=== PATIENT | female | born 1955 | race American Indian/Alaskan Native ===

== ENCOUNTER 2016-08-25 09:12 | Emergency (ER) | payer MEDICARE ==
[2016-08-25 09:20] VITALS: BP 157/108
--- NOTE | 2016-08-25 10:13 | XRay Report ---
LEFT FOOT, 2 VIEWS History: Injury. Findings: There is borderline osteopenia. No evidence for acute fracture or malalignment in the left foot. No erosive joint pathology. Distal tibial and fibular fractures are partially imaged. Impression: Unremarkable left foot films.
[2016-08-25] MEDS ORDERED: MORPHINE IV ONE ×2 (10:32→10:56)
[2016-08-25] MEDS ORDERED: ZOFRAN IV ONE (10:32)
--- NOTE | 2016-08-25 10:37 | XRay Report ---
LEFT ANKLE RADIOGRAPHS INDICATION: Injury from fall to left ankle. COMPARISON: None similar. FINDINGS: AP and lateral left ankle radiographs demonstrate intact mortise, malleoli and talar dome contour. Diffuse ankle soft tissue swelling though noted, medial more than lateral. Distal tibial and fibular shaft fractures approximately 5 cm above the ankle joint also noted, not significantly displaced, though slightly angulated. Fibular fracture may also be incomplete with only lateral cortical disruption. Bony demineralization. CONCLUSION: Left distal tibial and fibular shaft acute fractures and ankle soft tissue swelling with few other findings, as above. Thank you for the opportunity to participate in this patient's care.
--- NOTE | 2016-08-25 11:22 | Emergency Department Report ---
ED Lower Extremity HPI - General Chief Complaint: Extremity Injury, Lower Stated Complaint: TORN LIGAMENT,POSSIBLE FRACTURE Time Seen by Provider: 08/25/16 10:47 Source: patient Mode of arrival: Wheelchair Limitations: Physical Limitation - History of Present Illness MD Complaint: ankle injury -: Sudden Injury: Ankle: Left, Foot: Left Type of Injury: blunt, hyperextension Place: home Severity: moderate Severity scale (0 -10): 7 Improves With: nothing Worsens With: weight bearing, movement, palpation Associated Symptoms: snap/pop sensation, swelling, unable to bear weight. denies: numbness, tingling, ambulatory Treatments Prior to Arrival: cold therapy, bandage - Related Data Home Medications Medication Instructions Recorded Confirmed Last Taken HYDROcodone/APAP 10-325 1 tab Q4-6H 05/06/15 05/06/15 1 Day Ago Phenytoin Sodium Extended 100 mg PO DAILY 05/06/15 05/06/15 1 Day Ago Previous Rx's Medication Instructions Recorded Last Taken Type Carvedilol [Coreg] 25 mg PO BID #60 tablet 05/13/15 Unknown Rx Omeprazole [PriLOSEC] 40 mg PO QDAY #30 05/13/15 1 Day Ago Rx Triamter/Hctz 37.5-25 mg 1 tab PO QDAY #30 05/13/15 1 Day Ago Rx [Maxzide-25] amLODIPine [Norvasc] 10 mg PO QDAY #30 tablet 05/13/15 Unknown Rx Diclofenac Sodium 75 mg PO BID #20 tablet. 08/25/16 Unknown Rx HYDROcodone/APAP 10-325 [[place] 1 each PO BID PRN #12 tablet 08/25/16 Unknown Rx 10/325] Allergies Allergy/AdvReac Type Severity Reaction Status Date / Time NAVA Inhibitors Allergy Severe Angioedema Verified 05/07/15 09:14 ED Review of Systems ROS: Stated complaint: TORN LIGAMENT,POSSIBLE FRACTURE Other details as noted in HPI Comment: All other systems reviewed and negative ED Past Medical Hx - Past Medical History Hx Hypertension: Yes Hx Heart Attack/AMI: No Hx Congestive Heart Failure: Yes Hx Diabetes: No Hx Deep Vein Thrombosis: No Hx Pulmonary Embolism: No Hx GERD: Yes Hx Arthritis: Yes (Knees) Hx Seizures: Yes (Pituitary Tumor) Hx Asthma: No Hx COPD: No Hx Tuberculosis: No Hx Dementia: No Additional medical history: SCIATICA. PITUITARY TUMOR - Surgical History Hx Coronary Stent: No Hx Open Heart Surgery: No Hx Pacemaker: No Hx Internal Defibrillator: No Hx Cholecystectomy: No Hx Appendectomy: No Additional Surgical History: FIBROID REMOVED. HYSTERECTOMY - Social History Smoking Status: Never Smoker Substance Use Type: None - Medications Home Medications: Home Medications Medication Instructions Recorded Confirmed Last Taken Type HYDROcodone/APAP 10-325 1 tab Q4-6H 05/06/15 05/06/15 1 Day Ago History Phenytoin Sodium Extended 100 mg PO DAILY 05/06/15 05/06/15 1 Day Ago History Carvedilol [Coreg] 25 mg PO BID #60 tablet 05/13/15 Unknown Rx Omeprazole [PriLOSEC] 40 mg PO QDAY #30 05/13/15 05/06/15 1 Day Ago Rx Triamter/Hctz 37.5-25 mg 1 tab PO QDAY #30 05/13/15 05/06/15 1 Day Ago Rx [Maxzide-25] amLODIPine [Norvasc] 10 mg PO QDAY #30 tablet 05/13/15 Unknown Rx Diclofenac Sodium 75 mg PO BID #20 tablet. 08/25/16 Unknown Rx HYDROcodone/APAP 10-325 [[place] 1 each PO BID PRN #12 tablet 08/25/16 Unknown Rx 10/325] ED Physical Exam - General Limitations: Physical Limitation General appearance: alert, in no apparent distress - Head Head exam: Present: atraumatic, normocephalic - Eye Eye exam: Present: normal appearance - ENT ENT exam: Present: mucous membranes moist - Neck Neck exam: Present: normal inspection - Respiratory Respiratory exam: Present: normal lung sounds bilaterally. Absent: respiratory distress - Cardiovascular Cardiovascular Exam: Present: regular rate, normal rhythm. Absent: systolic murmur, diastolic murmur, rubs, gallop - GI/Abdominal GI/Abdominal exam: Present: soft, normal bowel sounds - Extremities Exam Extremities exam: Present: tenderness (to aplaption in distal lowerl left leg / above the ankle joint), joint swelling, other (neurovascular intact) - Back Exam Back exam: Present: normal inspection - Neurological Exam Neurological exam: Present: alert, oriented X3 - Psychiatric Psychiatric exam: Present: normal affect, normal mood - Skin Skin exam: Present: warm, dry, intact, normal color. Absent: rash ED Course Vital Signs 08/25/16 08/25/16 09:16 10:57 Temperature 98.7 F Pulse Rate 87 Respiratory 20 22 Rate Blood Pressure 157/108 O2 Sat by Pulse 100 Oximetry ED Lower Extremity MDM - Radiology Data Radiology results: report reviewed, image reviewed - Medical Decision Making will need a splint for her tib-fib close fracture. Has appointment with ortho later this week, will provide pain control and crutches, she has been in pain control at this point and neurovascular intact Critical care attestation.: If time is entered above; I have spent that time in minutes in the direct care of this critically ill patient, excluding procedure time. ED Disposition Clinical Impression: Ankle fracture Disposition: DC- TO HOME OR SELFCARE Is pt being admited?: No Does the pt Need Aspirin: No Condition: Good Instructions: Ankle Fracture (ED) Prescriptions: Diclofenac Sodium 75 mg PO BID #20 tablet. HYDROcodone/APAP 10-325 [[place] 10/325] 1 each PO BID PRN #12 tablet PRN Reason: Pain Referrals: PRIMARY CARE, [Primary Care Provider] - 3-5 Days Time of Disposition: 11:22
== END 2016-08-25 12:02 | disposition home or self-care (01) ==
LOC: ED 09:12
DX: S82.892A Other fracture of left lower leg, initial encounter for closed fracture (principal); I10 Essential (primary) hypertension; M19.90 Unspecified osteoarthritis, unspecified site; R56.9 Unspecified convulsions; Z88.8 Allergy status to other drugs, medicaments and biological substances; X58.XXXA Exposure to other specified factors, initial encounter; Y93.89 Activity, other specified; Y99.8 Other external cause status; Y92.89 Other specified places as the place of occurrence of the external cause
CPT/HCPCS: 29515; 73600; 73620; 96374; 96375; 99283; J2270; J2405

== ENCOUNTER 2019-03-28 17:10 | Observation (INO) | payer MEDICARE ==
[2019-03-28 19:13] LABS: Basophils % (Auto) 0.4 % (0.0-1.8); Eosinophils % (Auto) 0.4 % (0.0-4.3); Lymphocytes # (Auto) 2.4 K/mm3 (1.2-5.4); Lymphocytes % (Auto) 21.9 % (13.4-35.0); Mean Corpuscular HGB Conc 32 % (30-34); Mean Corpuscular Volume 93 fl (79-97); Monocytes # (Auto) 0.6 K/mm3 (0.0-0.8); Monocytes % (Auto) 5.2 % (0.0-7.3); Platelet Count 259 K/mm3 (140-440); Red Blood Count 1.94 M/mm3 (3.65-5.03); Red Cell Distribution Width 14.2 % (13.2-15.2)
--- NOTE | 2019-03-28 19:19 | Emergency Department Report ---
- General Chief complaint: Weakness Stated complaint: GENERAL WEAKNESS Time Seen by Provider: 03/28/19 18:08 Source: patient, EMS Mode of arrival: Stretcher Limitations: No Limitations - History of Present Illness Initial comments: 63-year-old -Citizen Of [place] female presents emergency department complaining of having some episodes of weakness which began about 5 days ago. She states that the bouts of weakness was associated with a fever sensation and various episodes of vomiting which occurred 2 times since Thursday. Thinking back she thinks that she had taken her blood pressure medication too many times at area as it was just adjusted by her primary care doctor is to take her medication she became hypersomnolent and fatigued but reported no chest pain or shortness of breath no blurred vision or syncope. She did report having a few episodes of feeling dizzy but present that it resolved she primarily came to [facility] department today due to her kids encouraging her just to get checked out to make sure things okay states she is ambulatory and and 30 cc not been able to drink a lot this past couple days due to her sleepy. MD Complaint: generalized weakness -: Gradual, days(s) (5) Location: generalized Severity: mild, moderate Consistency: other (Improving nearly resolved) Improves with: none Worsens with: none Associated Symptoms: denies other symptoms, fever/chills. denies: chest pain, dark stools, diaphoresis, headaches, loss of appetite, nausea/vomiting, shortness of breath - Related Data Home Medications Medication Instructions Recorded Confirmed Last Taken amLODIPine 10 mg PO PRN PRN 01/25/18 01/25/18 Unknown Previous Rx's Medication Instructions Recorded Last Taken Type Omeprazole [PriLOSEC] 40 mg PO QDAY #30 05/13/15 1 Day Ago Rx ~05/05/15 carvediloL [Coreg] 25 mg PO BID #60 tablet 05/13/15 Unknown Rx HYDROcodone/APAP 10-325 [[place] 1 each PO BID PRN #12 tablet 08/25/16 Unknown Rx 10-325 mg TAB] Allergies Allergy/AdvReac Type Severity Reaction Status Date / Time NAVA Inhibitors Allergy Severe Angioedema Verified 05/07/15 09:14 ED Review of Systems ROS: Stated complaint: GENERAL WEAKNESS Other details as noted in HPI Comment: All other systems reviewed and negative ED Past Medical Hx - Past Medical History Hx Hypertension: Yes Hx Heart Attack/AMI: No Hx Congestive Heart Failure: No Hx Diabetes: No Hx Deep Vein Thrombosis: No Hx Pulmonary Embolism: No Hx GERD: Yes Hx Arthritis: Yes (Knees) Hx Seizures: Yes (Pituitary Tumor) Hx Asthma: No Hx COPD: No Hx Tuberculosis: No Hx Dementia: No Additional medical history: SCIATICA. PITUITARY TUMOR - Surgical History Hx Coronary Stent: No Hx Open Heart Surgery: No Hx Pacemaker: No Hx Internal Defibrillator: No Hx Cholecystectomy: No Hx Appendectomy: No Additional Surgical History: FIBROID REMOVED. HYSTERECTOMY - Social History Smoking Status: Never Smoker - Medications Home Medications: Home Medications Medication Instructions Recorded Confirmed Last Taken Type Omeprazole [PriLOSEC] 40 mg PO QDAY #30 05/13/15 01/25/18 1 Day Ago Rx ~05/05/15 carvediloL [Coreg] 25 mg PO BID #60 tablet 05/13/15 01/25/18 Unknown Rx HYDROcodone/APAP 10-325 [[place] 1 each PO BID PRN #12 tablet 08/25/16 01/25/18 Unknown Rx 10-325 mg TAB] amLODIPine 10 mg PO PRN PRN 01/25/18 01/25/18 Unknown History ED Physical Exam - General Limitations: No Limitations General appearance: alert, in no apparent distress - Head Head exam: Present: atraumatic, normocephalic - Eye Eye exam: Present: normal appearance, PERRL, EOMI. Absent: scleral icterus, conjunctival injection - ENT ENT exam: Present: normal exam, normal orophraynx, mucous membranes moist - Neck Neck exam: Present: normal inspection - Respiratory Respiratory exam: Present: normal lung sounds bilaterally. Absent: respiratory distress, wheezes, rales, chest wall tenderness, accessory muscle use - Cardiovascular Cardiovascular Exam: Present: regular rate, normal rhythm. Absent: systolic murmur, diastolic murmur, rubs, gallop - GI/Abdominal GI/Abdominal exam: Present: soft, normal bowel sounds. Absent: distended, tenderness, guarding, hyperactive bowel sounds, hypoactive bowel sounds - Rectal Rectal exam: Present: normal inspection, heme (+) stool - Extremities Exam Extremities exam: Present: normal inspection, full ROM, normal capillary refill - Back Exam Back exam: Present: normal inspection, full ROM. Absent: CVA tenderness (R), CVA tenderness (L) - Neurological Exam Neurological exam: Present: alert, oriented X3, CN II-XII intact - Psychiatric Psychiatric exam: Present: normal affect, normal mood. Absent: depressed, agitated, anxious, flat affect, manic, homicidal ideation, suicidal ideation - Skin Skin exam: Present: warm, dry, intact, normal color. Absent: rash, cyanosis, diaphoretic - Level of Consciousness 1a. Level of Consciousness: alert/keenly responsive - LOC Questions 1b. LOC Questions: answers both correctly - LOC Command 1c. LOC Commands: performs tasks correctly - Best Gaze 2. Best Gaze: normal - Visual 3. Visual: no visual loss - Facial Palsy 4. Facial Palsy: normal symmetrical movement - Motor Arm 5a. Motor Arm Left: no drift 5b. Motor Arm Right: no drift - Motor Leg 6a. Motor Leg Left: no drift 6b. Motor Leg Right: no movement - Limb Ataxia 7. Limb Ataxia: absent - Sensory 8. Sensory: normal - Best Language 9. Best Language: no aphasia - Dysarthria 10. Dysarthria: normal - Extinction and Inattention 11. Extinction/Inattention: no abnormality - Scoring Total Score: 4 Stroke Severity: Minor Stroke ED Medical Decision Making - Lab Data Result diagrams: 03/28/19 Unknown - Medical Decision Making 63-year-old -Citizen Of [place] female came to my department with painless weakness which is been off and on for about the last 5 days started secondary to a hypertensive medication adjustment was found to have a hemoglobin of 5.8 with tachycardia. On examination she had a positive stool guaiac with no gastrointestinal pain. She reports no no no fever, chills, sweats or chest pain at this present time reports having to have a DuoNeb transfusion about 2 years ago. Case was discussed with the attending Dr. Fatima who agrees with the plan to admit which was accepted by the hospitalist Dr. Avila Critical care attestation.: If time is entered above; I have spent that time in minutes in the direct care of this critically ill patient, excluding procedure time. ED Disposition Clinical Impression: Anemia, GI bleed Disposition: DC-09 OP ADMIT IP TO THIS HOSP Is pt being admited?: Yes Does the pt Need Aspirin: No Condition: Stable
[2019-03-28 19:20] LABS: Hemoglobin 5.6 gm/dl (10.1-14.3)
[2019-03-28] MEDS ORDERED: SODIUM CHLORIDE 0.9% 500 ML 500 ML IV ONE (19:24)
[2019-03-28 19:39] LABS: Alanine Aminotransferase 10 units/L (7-56); Albumin 4.1 g/dL (3.9-5); BUN/Creatinine Ratio 38; Blood Urea Nitrogen 96 mg/dL (7-17); Hemolysis Index 15
--- NOTE | 2019-03-28 19:47 | XRay Report ---
CHEST 1 VIEW 03/28/2019 7:08 PM INDICATION / CLINICAL INFORMATION: Weakness. COMPARISON: Images from study dated 05/11/15 are not available at this time. FINDINGS: SUPPORT DEVICES: None. HEART / MEDIASTINUM: No significant abnormality. LUNGS / PLEURA: No significant pulmonary or pleural abnormality. No pneumothorax. ADDITIONAL FINDINGS: No significant additional findings. IMPRESSION: 1. No acute findings. Signer Name: Navid Onofre MD Signed: 03/28/2019 7:42 PM Workstation Name: [id number]
[2019-03-28 19:54] LABS: Chol/HDL Ratio 4.18 %
[2019-03-28 20:08] LABS: Mucus,Urine FEW /HPF
[2019-03-28 20:18] LABS: Bilirubin,Urine Negative (Negative); Color,Urine Straw (Yellow)
[2019-03-28 20:19] LABS: Blood,Urine Negative (Negative); Protein,Urine <15 mg/dL mg/dL (Negative); Urobilinogen,Urine < 2.0 mg/dL (<2.0)
[2019-03-28 20:44] LABS: INR 1.2 (0.87-1.13)
[2019-03-28 20:45] LABS: Partial Thromboplastin Time 25.5 Sec. (24.2-36.6)
[2019-03-28] MEDS ORDERED: ACETAMINOPHEN 325 MG TAB ONE (21:06)
[2019-03-28] MEDS ORDERED: ONDANSETRON 4 MG/2 ML INJ ONE (21:08)
--- NOTE | 2019-03-28 21:29 | History and Physical Report ---
History of Present Illness Date of examination: 03/28/19 Date of admission: 03/28/19 Chief complaint: " I have been throwing up" History of present illness: Patient is a 63-year-old female with a past medical history of hypertension, arthritis, and seizures who presents to ER with complaints of vomiting coffee-ground emesis, generalized weakness x 5 days. Patient reports worsening symptoms over the last 2 days when she has been unable to move from her bed to the bathroom without assistance from her son. Patient also reports increased thirst with chills with her bouts of emesis. Admits to NSAID use at home with hx of gastric ulcer in 2013. Denies abd pain, diarrhea, or constipation. Past History Past Medical History: hypertension, seizures Past Surgical History: hysterectomy Social history: lives with family Family history: hypertension Medications and Allergies Allergies Allergy/AdvReac Type Severity Reaction Status Date / Time NAVA Inhibitors Allergy Severe Angioedema Verified 05/07/15 09:14 Home Medications Medication Instructions Recorded Confirmed Last Taken Type Omeprazole [PriLOSEC] 40 mg PO QDAY #30 05/13/15 01/25/18 1 Day Ago Rx ~05/05/15 carvediloL [Coreg] 25 mg PO BID #60 tablet 05/13/15 01/25/18 Unknown Rx HYDROcodone/APAP 10-325 [[place] 1 each PO BID PRN #12 tablet 08/25/16 01/25/18 Unknown Rx 10-325 mg TAB] amLODIPine 10 mg PO PRN PRN 01/25/18 01/25/18 Unknown History Review of Systems All systems: negative Constitutional: sweats, fatigue, weakness Gastrointestinal: nausea, vomiting, coffee ground emesis Exam - Physical Exam Narrative exam: - Physical Exam Narrative exam: General appearance: Present: Mild distress noted - EENT Eyes: Present: PERRL ENT: hearing intact, clear oral mucosa - Neck Neck: Present: supple, normal ROM - Respiratory Respiratory effort: normal Respiratory: bilateral: Clear to auscultation - Cardiovascular Heart rate:121 Heart Sounds: Present: S1 & S2. Absent: rub, click - Extremities Extremities: pulses symmetrical, No edema Peripheral Pulses: within normal limits - Abdominal General gastrointestinal: Present: , non-distended, normal bowel sounds genitourinary: Present: normal - Integumentary Integumentary: Present: clear, warm, dry - Musculoskeletal Musculoskeletal: gait normal, strength equal bilaterally - Psychiatric Psychiatric: appropriate mood/affect, intact judgment & insight - Neurologic Neurologic: CNII-XII intact, moves all extremities - Constitutional Vitals: Temp Pulse Resp BP Pulse Ox 98.2 F 115 H 18 104/60 98 03/28/19 17:10 03/28/19 17:10 03/28/19 19:32 03/28/19 17:10 03/28/19 19:32 Results - Labs CBC & Chem 7: 03/28/19 Unknown 03/28/19 Unknown Labs: Laboratory Last Values WBC 11.1 K/mm3 (4.5-11.0) H 03/28/19 Unknown RBC 1.94 M/mm3 (3.65-5.03) L 03/28/19 Unknown Hgb 5.6 gm/dl (10.1-14.3) L* 03/28/19 Unknown Hct 18.0 % (30.3-42.9) L* 03/28/19 Unknown MCV 93 fl (79-97) 03/28/19 Unknown MCH 29 pg (28-32) 03/28/19 Unknown MCHC 32 % (30-34) 03/28/19 Unknown RDW 14.2 % (13.2-15.2) 03/28/19 Unknown Plt Count 259 K/mm3 (140-440) 03/28/19 Unknown Lymph % (Auto) 21.9 % (13.4-35.0) 03/28/[address] [facility] % (Auto) 5.2 % (0.0-7.3) 03/28/19 Unknown Eos % (Auto) 0.4 % (0.0-4.3) 03/28/19 Unknown Baso % (Auto) 0.4 % (0.0-1.8) 03/28/19 Unknown Lymph # 2.4 K/mm3 (1.2-5.4) 03/28/[address] [facility] # 0.6 K/mm3 (0.0-0.8) 03/28/19 Unknown Eos # 0.0 K/mm3 (0.0-0.4) 03/28/19 Unknown Baso # 0.0 K/mm3 (0.0-0.1) 03/28/19 Unknown Seg Neutrophils % 72.1 % (40.0-70.0) H 03/28/19 Unknown Seg Neutrophils # 8.0 K/mm3 (1.8-7.7) H 03/28/19 Unknown PT 15.4 Sec. (12.2-14.9) H 03/28/19 20:00 INR 1.20 (0.87-1.13) H 03/28/19 20:00 APTT 25.5 Sec. (24.2-36.6) 03/28/19 20:00 Sodium 147 mmol/L (137-145) H 03/28/19 Unknown Potassium 3.7 mmol/L (3.6-5.0) 03/28/19 Unknown Chloride 108.8 mmol/L (98-107) H 03/28/19 Unknown Carbon Dioxide 18 mmol/L (22-30) L 03/28/19 Unknown Anion Gap 24 mmol/L 03/28/19 Unknown BUN 96 mg/dL (7-17) H 03/28/19 Unknown Creatinine 2.5 mg/dL (0.7-1.2) H 03/28/19 Unknown Estimated GFR 23 ml/min 03/28/19 Unknown BUN/Creatinine Ratio 38 % 03/28/19 Unknown Glucose 158 mg/dL (65-100) H 03/28/19 Unknown Calcium 9.0 mg/dL (8.4-10.2) 03/28/19 Unknown Total Bilirubin < 0.20 mg/dL (0.1-1.2) 03/28/19 Unknown AST 17 units/L (5-40) 03/28/19 Unknown ALT 10 units/L (7-56) 03/28/19 Unknown Alkaline Phosphatase 36 units/L (35-129) 03/28/19 Unknown Troponin T 0.038 ng/mL (0.00-0.029) H 03/28/19 Unknown Total Protein 6.9 g/dL (6.3-8.2) 03/28/19 Unknown Albumin 4.1 g/dL (3.9-5) 03/28/19 Unknown Albumin/Globulin Ratio 1.5 % 03/28/19 Unknown Triglycerides 164 mg/dL (2-149) H 03/28/19 Unknown Cholesterol 155 mg/dL (50-199) 03/28/19 Unknown LDL Cholesterol Direct 102 mg/dL (50-130) 03/28/19 Unknown HDL Cholesterol 37 mg/dL (40-59) L 03/28/19 Unknown Cholesterol/HDL Ratio 4.18 % 03/28/19 Unknown Urine Color Straw (Yellow) 03/28/19 Unknown Urine Turbidity Clear (Clear) 03/28/19 Unknown Urine pH 5.0 (5.0-7.0) 03/28/19 Unknown Ur Specific [place] 1.010 (1.003-1.030) 03/28/19 Unknown Urine Protein <15 mg/dl mg/dL (Negative) 03/28/19 Unknown Urine Glucose (UA) Negative mg/dL (Negative) 03/28/19 Unknown Urine Ketones Negative mg/dL (Negative) 03/28/19 Unknown Urine Blood Negative (Negative) 03/28/19 Unknown Urine Nitrite Negative (Negative) 03/28/19 Unknown Ur Reducing Substances Not Reportable 03/28/19 Unknown Urine Bilirubin Negative (Negative) 03/28/19 Unknown Urine Ictotest Not Reportable 03/28/19 Unknown Urine Urobilinogen < 2.0 mg/dL (<2.0) 03/28/19 Unknown Ur Leukocyte Esterase Negative (Negative) 03/28/19 Unknown Urine WBC (Auto) 1.0 /HPF (0.0-6.0) 03/28/19 Unknown Urine RBC (Auto) 1.0 /HPF (0.0-6.0) 03/28/19 Unknown Urine Mucus Few /HPF 03/28/19 Unknown Blood Type O POSITIVE 03/28/19 20:05 Antibody Screen Negative 03/28/19 20:05 Crossmatch See Detail 03/28/19 20:05 Assessment and Plan Assessment and plan: GI bleed -positive stool guaiac -C/o multiple episodes of coffee-ground emesis -IV Protonix -GI consulted Hypertension -Home meds once reconciled -Monitor BP q shift Anemia -Hb 5.6g/dl -secondary to GI bleed -Transfused 2 units in the ER -h/o ulcer DVT prophylaxis -SCDs bilateral - No pharmacological agent given anemia/GI bleed Advance Directives: No VTE prophylaxis?: Mechanical Reason for no VTE Prophylaxis: Bleeding Plan of care discussed with patient/family: Yes
[2019-03-28] MEDS ORDERED: ONDANSETRON 4 MG/2 ML INJ IV PRN (21:31)
[2019-03-28] MEDS ORDERED: ACETAMINOPHEN 325 MG TAB PO PRN (21:31)
[2019-03-28] MEDS ORDERED: SODIUM CHLORIDE 0.9% 500 ML 500 ML ONE (21:36)
[2019-03-28] MEDS ORDERED: PANTOPRAZOLE 40 MG INJ IV SCH (22:00)
[2019-03-28] MEDS ORDERED: ACETAMINOPHEN 325 MG TAB PO ONE (22:22)
[2019-03-28] MEDS ORDERED: ONDANSETRON 4 MG/2 ML INJ IV ONE (22:22)
[2019-03-28] MEDS ORDERED: PANTOPRAZOLE 80 MG in SODIUM CHLORIDE 0.9% 100 ML IV SCH (23:00)
[2019-03-29] MEDS ORDERED: SODIUM CHLORIDE 0.9% 500 ML 500 ML IV ONE (00:15)
[2019-03-29 05:47] LABS: Basophils # (Auto) 0.1 K/mm3 (0.0-0.1); Basophils % (Auto) 0.5 % (0.0-1.8); Eosinophils # (Auto) 0.1 K/mm3 (0.0-0.4); Eosinophils % (Auto) 1.2 % (0.0-4.3); Hematocrit 23.2 % (30.3-42.9); Hemoglobin 7.7 gm/dl (10.1-14.3); Lymphocytes # (Auto) 3.2 K/mm3 (1.2-5.4); Lymphocytes % (Auto) 27.7 % (13.4-35.0); Mean Corpuscular HGB Conc 33 % (30-34); Mean Corpuscular Volume 91 fl (79-97); Monocytes # (Auto) 0.8 K/mm3 (0.0-0.8); Monocytes % (Auto) 7.1 % (0.0-7.3); Platelet Count 179 K/mm3 (140-440); Red Blood Count 2.56 M/mm3 (3.65-5.03); Red Cell Distribution Width 15.1 % (13.2-15.2)
--- NOTE | 2019-03-29 08:45 | Progress Note ---
Assessment and Plan Assessment and plan: Patient is a 63-year-old female with a past medical history of hypertension, arthritis, and seizures who presents to ER with complaints of vomiting coffee-ground emesis, generalized weakness x 5 days. Patient reports worsening symptoms over the last 2 days when she has been unable to move from her bed to the bathroom without assistance from her son. Patient also reports increased thirst with chills with her bouts of emesis. Admits to NSAID use at home with hx of gastric ulcer in 2013. Denies abd pain, diarrhea, or constipation. Hospitalist Physical - Constitutional Vitals: Temp Pulse Resp BP Pulse Ox 99.3 F 18 L 18 110/61 100 03/29/19 08:00 03/29/19 08:00 03/29/19 02:50 03/29/19 08:00 03/29/19 07:24 Results - Labs CBC & Chem 7: 03/29/19 04:57 03/29/19 04:57 Labs: Laboratory Last Values WBC 11.7 K/mm3 (4.5-11.0) H 03/29/19 04:57 RBC 2.56 M/mm3 (3.65-5.03) L 03/29/19 04:57 Hgb 7.7 gm/dl (10.1-14.3) L 03/29/19 04:57 Hct 23.2 % (30.3-42.9) L 03/29/19 04:57 MCV 91 fl (79-97) 03/29/19 04:57 MCH 30 pg (28-32) 03/29/19 04:57 MCHC 33 % (30-34) 03/29/19 04:57 RDW 15.1 % (13.2-15.2) 03/29/19 04:57 Plt Count 179 K/mm3 (140-440) 03/29/19 04:57 Lymph % (Auto) 27.7 % (13.4-35.0) 03/29/19 04:57 [place] % (Auto) 7.1 % (0.0-7.3) 03/29/19 04:57 Eos % (Auto) 1.2 % (0.0-4.3) 03/29/19 04:57 Baso % (Auto) 0.5 % (0.0-1.8) 03/29/19 04:57 Lymph # 3.2 K/mm3 (1.2-5.4) 03/29/19 04:57 [place] # 0.8 K/mm3 (0.0-0.8) 03/29/19 04:57 Eos # 0.1 K/mm3 (0.0-0.4) 03/29/19 04:57 Baso # 0.1 K/mm3 (0.0-0.1) 03/29/19 04:57 Seg Neutrophils % 63.5 % (40.0-70.0) 03/29/19 04:57 Seg Neutrophils # 7.5 K/mm3 (1.8-7.7) 03/29/19 04:57 PT 15.4 Sec. (12.2-14.9) H 03/28/19 20:00 INR 1.20 (0.87-1.13) H 03/28/19 20:00 APTT 25.5 Sec. (24.2-36.6) 03/28/19 20:00 Sodium 143 mmol/L (137-145) 03/29/19 04:57 Potassium 3.3 mmol/L (3.6-5.0) L 03/29/19 04:57 Chloride 107.9 mmol/L (98-107) H 03/29/19 04:57 Carbon Dioxide 17 mmol/L (22-30) L 03/29/19 04:57 Anion Gap 21 mmol/L 03/29/19 04:57 BUN 89 mg/dL (7-17) H 03/29/19 04:57 Creatinine 2.1 mg/dL (0.7-1.2) H 03/29/19 04:57 Estimated GFR 29 ml/min 03/29/19 04:57 BUN/Creatinine Ratio 42 % 03/29/19 04:57 Glucose 146 mg/dL (65-100) H 03/29/19 04:57 Calcium 8.0 mg/dL (8.4-10.2) L 03/29/19 04:57 Total Bilirubin < 0.20 mg/dL (0.1-1.2) 03/28/19 Unknown AST 17 units/L (5-40) 03/28/19 Unknown ALT 10 units/L (7-56) 03/28/19 Unknown Alkaline Phosphatase 36 units/L (35-129) 03/28/19 Unknown Troponin T 0.038 ng/mL (0.00-0.029) H 03/28/19 Unknown Total Protein 6.9 g/dL (6.3-8.2) 03/28/19 Unknown Albumin 4.1 g/dL (3.9-5) 03/28/19 Unknown Albumin/Globulin Ratio 1.5 % 03/28/19 Unknown Triglycerides 164 mg/dL (2-149) H 03/28/19 Unknown Cholesterol 155 mg/dL (50-199) 03/28/19 Unknown LDL Cholesterol Direct 102 mg/dL (50-130) 03/28/19 Unknown HDL Cholesterol 37 mg/dL (40-59) L 03/28/19 Unknown Cholesterol/HDL Ratio 4.18 % 03/28/19 Unknown Urine Color Straw (Yellow) 03/28/19 Unknown Urine Turbidity Clear (Clear) 03/28/19 Unknown Urine pH 5.0 (5.0-7.0) 03/28/19 Unknown Ur Specific [place] 1.010 (1.003-1.030) 03/28/19 Unknown Urine Protein <15 mg/dl mg/dL (Negative) 03/28/19 Unknown Urine Glucose (UA) Negative mg/dL (Negative) 03/28/19 Unknown Urine Ketones Negative mg/dL (Negative) 03/28/19 Unknown Urine Blood Negative (Negative) 03/28/19 Unknown Urine Nitrite Negative (Negative) 03/28/19 Unknown Ur Reducing Substances Not Reportable 03/28/19 Unknown Urine Bilirubin Negative (Negative) 03/28/19 Unknown Urine Ictotest Not Reportable 03/28/19 Unknown Urine Urobilinogen < 2.0 mg/dL (<2.0) 03/28/19 Unknown Ur Leukocyte Esterase Negative (Negative) 03/28/19 Unknown Urine WBC (Auto) 1.0 /HPF (0.0-6.0) 03/28/19 Unknown Urine RBC (Auto) 1.0 /HPF (0.0-6.0) 03/28/19 Unknown Urine Mucus Few /HPF 03/28/19 Unknown Blood Type O POSITIVE 03/28/19 20:05 Antibody Screen Negative 03/28/19 20:05 Crossmatch See Detail 03/28/19 20:05 Active Medications - Current Medications Current Medications: Generic Name Dose Route Start Last Admin Trade Name Freq PRN Reason Stop Dose Admin Acetaminophen 650 mg 03/28/19 21:31 Tylenol PO Q4H PRN Pain MILD(1-3)/Fever >100.5/CHRISTIANSON Pantoprazole Sodium 80 mg/ 100 mls @ 10 mls/hr 03/28/19 23:00 03/29/19 05:34 Sodium Chloride IV 8 mg/hr DIRECT KHADIJAH 10 mls/hr Administration 8 MG/HR Ondansetron HCl 4 mg 03/28/19 21:31 Zofran IV Q6H PRN Nausea And Vomiting Sodium Chloride 10 ml 03/28/19 22:00 03/29/19 00:12 Sodium Chloride Flush Syringe 10 Ml IV 10 ml BID KHADIJAH Administration Sodium Chloride 10 ml 03/28/19 21:31 Sodium Chloride Flush Syringe 10 Ml IV PRN PRN LINE FLUSH
[2019-03-29] MEDS ORDERED: SODIUM CHLORIDE 0.9% 1000 ML 1,000 ML IV SCH ×2 (09:30→13:30)
[2019-03-29] MEDS ORDERED: SODIUM BICARB 8.4% 50 MEQ/50 ML SYRINGE IV ONE (10:00)
--- NOTE | 2019-03-29 11:57 | Gastroenterology Consultation ---
History of Present Illness - Reason for Consult Consult date: 03/29/19 GI bleed Requesting physician: AMADOU AMARO - History of Present Illness Patient is a 63 y/o female with PMH of HTN, arthritis, and seizures who presented to ED with c/o generalized weakness and vomiting coffee-ground emesis. Upon admission, she was found to be servely anemic with H/H 5.6/18.0. GI has been consulted for GI bleeding. This morning patient was resting in bed w/o acute distress. She reports vomiting black emesis yesterday but has had no further signs of bleeding this am. No hematemesis, melena, or hematochezia. Denies fever, CP, SOB, wt loss, abd pain, diarrhea, or constipation. Admits to heavy NSAID use with Goody's powder. Patient is previously known to our service. She has a hx of chronic anemia and PUD. Last EGD was in 2013 which revealed multiple gastric ulcers and last colonoscopy was in 2009 with normal results. Past History Past Medical History: other (see HPI) Past Surgical History: hysterectomy Social history: lives with family Family history: hypertension Medications and Allergies Allergies Allergy/AdvReac Type Severity Reaction Status Date / Time NAVA Inhibitors Allergy Severe Angioedema Verified 05/07/15 09:14 Home Medications Medication Instructions Recorded Confirmed Last Taken Type Omeprazole [PriLOSEC] 40 mg PO QDAY #30 05/13/15 03/29/19 1 Day Ago Rx ~05/05/15 carvediloL [Coreg] 25 mg PO BID #60 tablet 05/13/15 03/29/19 03/27/19 Rx HYDROcodone/APAP 10-325 [Everetts 1 each PO BID PRN #12 tablet 08/25/16 03/29/19 03/26/19 Rx 10-325 mg TAB] amLODIPine 10 mg PO PRN PRN 01/25/18 03/29/19 Unknown History levETIRAcetam [Keppra XR TAB] 750 mg PO BID 03/29/19 03/29/19 Unknown History Active Meds: Active Medications Acetaminophen (Tylenol) 650 mg PO Q4H PRN PRN Reason: Pain MILD(1-3)/Fever >100.5/CHRISTIANSON Pantoprazole Sodium 80 mg/ (Sodium Chloride) 100 mls @ 10 mls/hr IV DIRECT KHADIJAH Last Admin: 03/29/19 05:34 Dose: 8 mg/hr, 10 mls/hr Documented by: Sodium Chloride (Nacl 0.9% 1000 Ml) 1,000 mls @ 75 mls/hr IV DIRECT [facility] Last Admin: 03/29/19 10:01 Dose: 75 mls/hr Documented by: Ondansetron HCl (Zofran) 4 mg IV Q6H PRN PRN Reason: Nausea And Vomiting Sodium Chloride (Sodium Chloride Flush Syringe 10 Ml) 10 ml IV BID [facility] Last Admin: 03/29/19 10:01 Dose: 10 ml Documented by: Sodium Chloride (Sodium Chloride Flush Syringe 10 Ml) 10 ml IV PRN PRN PRN Reason: LINE FLUSH medications reviewed/updated as required Review of Systems - Review of Systems All systems: negative Constitutional: weakness Gastrointestinal: coffee ground emesis Exam - Constitutional Vital Signs: Temp Pulse Resp BP Pulse Ox 99.3 F 75 18 110/61 100 03/29/19 08:00 03/29/19 07:18 03/29/19 08:00 03/29/19 08:00 03/29/19 07:24 General appearance: no acute distress - EENT Eyes: PERRL, EOM intact ENT: hearing intact - Respiratory Respiratory effort: normal - Cardiovascular Rhythm: regular - Gastrointestinal General gastrointestinal: Present: soft, non-tender, non-distended, normal bowel sounds - Integumentary Integumentary: Present: warm, dry - Neurologic Neurological: alert and oriented x3 - Labs CBC & Chem 7: 03/29/19 04:57 03/29/19 04:57 Lab Results: Laboratory Results - last 24 hr 03/28/19 03/28/19 03/28/19 20:00 20:00 20:05 WBC RBC Hgb Hct MCV MCH MCHC RDW Plt Count Lymph % (Auto) [place] % (Auto) Eos % (Auto) Baso % (Auto) Lymph # [place] # Eos # Baso # Seg Neutrophils % Seg Neutrophils # PT 15.4 H INR 1.20 H APTT 25.5 Sodium Potassium Chloride Carbon Dioxide Anion Gap BUN Creatinine Estimated GFR BUN/Creatinine Ratio Glucose Calcium Total Bilirubin AST ALT Alkaline Phosphatase Troponin T 0.039 H Total Protein Albumin Albumin/Globulin Ratio Triglycerides Cholesterol LDL Cholesterol Direct HDL Cholesterol Cholesterol/HDL Ratio Urine Color Urine Turbidity Urine pH Ur Specific [place] Urine Protein Urine Glucose (UA) Urine Ketones Urine Blood Urine Nitrite Ur Reducing Substances Urine Bilirubin Urine Ictotest Urine Urobilinogen Ur Leukocyte Esterase Urine WBC (Auto) Urine RBC (Auto) Urine Mucus Blood Type O POSITIVE Antibody Screen Negative Crossmatch See Detail 03/28/19 03/28/19 03/28/19 Unknown Unknown Unknown WBC 11.1 H RBC 1.94 L Hgb 5.6 L* Hct 18.0 L* MCV 93 MCH 29 MCHC 32 RDW 14.2 Plt Count 259 Lymph % (Auto) 21.9 [place] % (Auto) 5.2 Eos % (Auto) 0.4 Baso % (Auto) 0.4 Lymph # 2.4 [place] # 0.6 Eos # 0.0 Baso # 0.0 Seg Neutrophils % 72.1 H Seg Neutrophils # 8.0 H PT INR APTT Sodium 147 H Potassium 3.7 Chloride 108.8 H Carbon Dioxide 18 L Anion Gap 24 BUN 96 H Creatinine 2.5 H Estimated GFR 23 BUN/Creatinine Ratio 38 Glucose 158 H Calcium 9.0 Total Bilirubin < 0.20 AST 17 ALT 10 Alkaline Phosphatase 36 Troponin T Total Protein 6.9 Albumin 4.1 Albumin/Globulin Ratio 1.5 Triglycerides Cholesterol LDL Cholesterol Direct HDL Cholesterol Cholesterol/HDL Ratio Urine Color Straw Urine Turbidity Clear Urine pH 5.0 Ur Specific [place] 1.010 Urine Protein <15 mg/dl Urine Glucose (UA) Negative Urine Ketones Negative Urine Blood Negative Urine Nitrite Negative Ur Reducing Substances Not Reportable Urine Bilirubin Negative Urine Ictotest Not Reportable Urine Urobilinogen < 2.0 Ur Leukocyte Esterase Negative Urine WBC (Auto) 1.0 Urine RBC (Auto) 1.0 Urine Mucus Few Blood Type Antibody Screen Crossmatch 03/28/19 03/29/19 03/29/19 Unknown 04:57 04:57 WBC 11.7 H RBC 2.56 L Hgb 7.7 L Hct 23.2 L MCV 91 MCH 30 MCHC 33 RDW 15.1 Plt Count 179 Lymph % (Auto) 27.7 [place] % (Auto) 7.1 Eos % (Auto) 1.2 Baso % (Auto) 0.5 Lymph # 3.2 [place] # 0.8 Eos # 0.1 Baso # 0.1 Seg Neutrophils % 63.5 Seg Neutrophils # 7.5 PT INR APTT Sodium 143 Potassium 3.3 L Chloride 107.9 H Carbon Dioxide 17 L Anion Gap 21 BUN 89 H Creatinine 2.1 H Estimated GFR 29 BUN/Creatinine Ratio 42 Glucose 146 H Calcium 8.0 L Total Bilirubin AST ALT Alkaline Phosphatase Troponin T 0.038 H Total Protein Albumin Albumin/Globulin Ratio Triglycerides 164 H Cholesterol 155 LDL Cholesterol Direct 102 HDL Cholesterol 37 L Cholesterol/HDL Ratio 4.18 Urine Color Urine Turbidity Urine pH Ur Specific [place] Urine Protein Urine Glucose (UA) Urine Ketones Urine Blood Urine Nitrite Ur Reducing Substances Urine Bilirubin Urine Ictotest Urine Urobilinogen Ur Leukocyte Esterase Urine WBC (Auto) Urine RBC (Auto) Urine Mucus Blood Type Antibody Screen Crossmatch Assessment and Plan 1.acute on chronic anemia 2.coffee ground emesis 3.H/o PUD (2013) -H/H 7.7/23.2- appropriate rise s/p transfusion 2 units PRBCs (H/H 5.6/18.0 on admission) -continue to monitor H/H and transfuse as needed -hold blood thinning medications -pt reports vomiting black emesis yesterday. Denies melena, hematochezia, or abd pain. -no active signs of bleeding today; currently HD stable -last EGD 2013 revealed multiple gastric ulcers -last colonoscopy 2009 with normal results -etiology-likely 2/2 recurrent PUD given continued heavy NSAID use vs other -will schedule for EGD today for further evaluation (if negative, consider colonoscopy) -Keep NPO for now -continue protonix -avoid NSAIDs -continue supportive care -further recommendations to follow EGD results
[2019-03-29] MEDS ORDERED: LIDOCAINE MPF (2%) 20 MG/1 ML VIAL 5 ML ONE (14:00)
--- NOTE | 2019-03-29 14:00 | Anesthesia Consultation ---
Anesthesia Consult and Med Hx Date of service: 03/29/19 - Airway Anesthetic Teeth Evaluation: Dentures ROM Head & Neck: Adequate Mental/Hyoid Distance: Adequate Mallampati Class: Class III Intubation Access Assessment: Probably Good - Pre-Operative Health Status ASA Pre-Surgery Classification: ASA4 Proposed Anesthetic Plan: MAC - Pulmonary Hx Smoking: Yes (past smoker) Hx Asthma: No Hx Respiratory Symptoms: No SOB: No COPD: No Home Oxygen Therapy: No Hx Pneumonia: Yes Hx Sleep Apnea: No - Cardiovascular System Hx Hypertension: Yes Hx Coronary Artery Disease: No Hx Heart Attack/AMI: No Hx Angina: No Hx Percutaneous Transluminal Coronary Angioplasty (PTCA): No Hx Cardia Arrhythmia: No Hx Pacemaker: No Hx Internal Defibrillator: No Hx Valvular Heart Disease: No Hx Heart Murmur: No Hx Peripheral Vascular Disease: No - Central Nervous System Hx Neuromuscular Disorder: No Hx Seizures: Yes (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 Follows urologist) Hx End Stage Renal Disease: No Hx Cirrhosis: No Hx Liver Disease: No Hx Insulin Dependent Diabetes: No Hx Non-Insulin Dependent Diabetes: No Hx Thyroid Disease: No Hx Hypothyroidism: No Hx Hyperthyroidism: No - Hematic Hx Anemia: Yes Hx Sickle Cell Disease: No - Other Systems Hx Alcohol Use: No Hx Substance Use: No Hx Cancer: No Hx Obesity: No
--- NOTE | 2019-03-29 14:04 | Anesthesia Day of Surgery ---
Anesthesia Day of Surgery - Day of Surgery Patient Examined: Yes Patient H&P Reviewed: Yes Patient is NPO: Yes Beta Blockers: No
[2019-03-29] MEDS ORDERED: WATER FOR IRRIG STERILE 250 ML BOTTLE IR ONE (14:37)
[2019-03-29] MEDS ORDERED: propofoL 200 MG/20 ML VIAL IV ONE ×2 (14:48)
--- NOTE | 2019-03-29 15:01 | Post Operative Note ---
Pre-op diagnosis: gi bleed Post-op diagnosis: same Findings: EGD: hiatal hernia - 9 mm white based pre-pyloric ulcer w/o bleeding stigmata w/ noted gastritis (bx's) - negative other Procedure: EGD Anesthesia: MAC Surgeon: GONZALO AGUIRRE Estimated blood loss: none Pathology: list Specimen disposition: to lab Condition: stable Disposition: floor
[2019-03-29 15:19] VITALS: BP 101/47
--- NOTE | 2019-03-29 15:19 | Discharge Summary ---
Providers - Providers Date of Admission: 03/28/19 20:06 Attending physician: MARTHA SORIA MD 03/28/19 21:31 Consult to Physician [CONS] Routine Comment: SHAQUILLE Consulting Provider: VIKI ORLANDO Physician Instructions: CONSULT WAS CALLED TO [place] Reason For Exam: gi bleed 03/29/19 09:12 Physical Therapy Evaluation and Treat [CONS] Routine Comment: Reason For Exam: weakness 03/29/19 09:30 Consult to Physician [CONS] Routine Comment: SHAQUILLE Consulting Provider: PAUL GRIGGS Physician Instructions: CONSULT WAS CALLED TO /GLADYS Reason For Exam: gladys 03/29/19 14:45 Occupational Therapy Evaluate and Treat [CONS] Urgent Comment: Reason For Exam: gerneralized weakness Primary care physician: DUGLAS FUENTES Hospitalization Reason for admission: GI bleed Condition: Stable Hospital course: Patient is a 63-year-old female with a past medical history of hypertension, arthritis, and seizures who presents to ER with complaints of vomiting coffee-ground emesis, generalized weakness x 5 days. Patient reports worsening symptoms over the last 2 days when she has been unable to move from her bed to the bathroom without assistance from her son. Patient also reports increased thirst with chills with her bouts of emesis. Admits to NSAID use at home with hx of gastric ulcer in 2013. Denies abd pain, diarrhea, or constipation. It took remarkable discussion with this patient for her to be agreeable for the upper endoscopy she reports that after the endoscopy she would like to be discharged she understands that her renal function is now quite at her baseline and this is likely secondary to dehydration and also severe anemia. She promises to follow with her primary care doctor she states that she has a child that is sick at home and must go home to take care of her baby. Renal function is improving some. Patient did have improvement with transfusion 1 unit packed red blood cell. Patient was given extensive counseling to avoid NSAIDs and Goody powder. I have also recommended that the patient follows with GI and nephrology outpatient and have a repeat blood work. Ideally patient should be monitored extra day but declined. Extensive counseling on quitting tobacco discussed with patient. EGD: hiatal hernia - 9 mm white based pre-pyloric ulcer w/o bleeding stigmata w/ noted gastritis (bx's) - negative other 1.acute on chronic anemia 2.coffee ground emesis 3.H/o PUD (2013) 4. Acute kidney injury secondary to severe anemia with underlying vasomotor nephropathy 5. Metabolic acidosis 6. Type II [place] secondary to demand ischemia 7. Tobacco use disorder Disposition: DC-01 TO HOME OR SELFCARE Time spent for discharge: 35 minutes Core Measure Documentation - Palliative Care Palliative Care/ Comfort Measures: Not Applicable - Core Measures Any of the following diagnoses?: none Exam - Physical Exam Narrative exam: VITAL SIGNS: Reviewed. GENERAL: The patient appears normally developed, Vital signs as documented. HEAD: No signs of head trauma. EYES: Pupils are equal. Extraocular motions intact. EARS: Hearing grossly intact. MOUTH: Oropharynx is normal. NECK: No adenopathy, no JVD. CHEST: Chest with clear breath sounds bilaterally. No wheezes, rales, or rhonchi. CARDIAC: Regular rate and rhythm. S1 and S2, without murmurs, gallops, or rubs. VASCULAR: No Edema. Peripheral pulses normal and equal in all extremities. ABDOMEN: Soft, non tender and non distended. No rebound or guarding, and no masses palpated. Bowel Sounds normal. MUSCULOSKELETAL: Good range of motion of all major joints. Extremities without clubbing, cyanosis or edema. NEUROLOGIC EXAM: Alert and oriented x 3 No focal sensory or strength deficits. Speech normal. Follows commands. PSYCHIATRIC: Mood normal. SKIN: detial exam as documented in skin assessment - Constitutional Vitals: Temp Pulse Resp BP Pulse Ox 99.1 F 92 H 17 127/51 100 03/29/19 14:57 03/29/19 14:57 03/29/19 14:57 03/29/19 13:46 03/29/19 14:57 Plan Activity: advance as tolerated, fall precautions Diet: low fat Special Instructions: record daily weights, record daily BP diary, smoking cessation Additional Instructions: Avoid NSAIDS. Must have repeat labs including hemoglobin and renal function with primary doctor or eeg tech Follow up with: ROVERTO FLOWER MD [Referring] - 7 Days GONZALO AGUIRRE MD [Staff Physician] - 7 Days PAUL GRIGGS MD [Staff Physician] - 7 Days Prescriptions: Pantoprazole [Protonix] 40 mg PO QDAY #30 tablet
--- NOTE | 2019-03-29 15:20 | Operative Report ---
INDICATIONS: 1. Anemia. 2. Gastrointestinal bleed. MEDICATIONS: Propofol per IMPRESSION PRINTER. COMPLICATIONS: None. DESCRIPTION OF PROCEDURE: The patient brought to the procedure suite. The patient had the procedure discussed with her at length. All risks, complications, and benefits discussed after which the patient signed for the procedure performed. The patient was placed in left lateral decubitus position. Mouth block placed in the patient's oral cavity. After adequate sedation medication as above, endoscope placed in the mouth and brought to level of the second portion of duodenum. Retroflexion view performed. The patient's vital signs remained stable throughout the procedure. FINDINGS: There was noted to be a small hiatal hernia at GE junction at 37 cm from the gums. The esophagus otherwise appeared to be normal. There was a 9 mm mainly white based ulcer noted in the prepyloric antral area. No stigmata of bleeding was noted. There was moderate antral gastritis noted in and around that area of the ulcer. Biopsies of gastritis was taken and sent to pathology. Remaining stomach otherwise appeared to be normal. Duodenum appeared to be normal. Retroflexion view performed in the stomach showed no other pathology other than noted above. The patient tolerated the procedure well. No complications during the procedure. IMPRESSION: 1. Hiatal hernia. 2. Otherwise, normal esophagus. 3. Ulcers noted above with gastritis, biopsies performed. 4. Otherwise, normal EGD. RECOMMENDATIONS: 1. Follow up biopsy results. 2. If H. pylori positive, treat. 3. PPI daily. 4. Advance diet. 5. If stable in a.m., okay to discharge from GI standpoint. JOB# [id number] CAB/NTS
--- NOTE | 2019-03-29 16:33 | Post Anesthesia Evaluation ---
- Post Anesthesia Evaluation Patient Participated: Yes Airway Patent: Yes Stable Respiratory Function: Yes Nausea/Vomiting: No Temp > 96.8F: Yes Pain Manageable: Yes Adequeate Hydration: Yes Anesthesia Complications: No
== END 2019-03-29 16:37 | disposition home or self-care (01) ==
LOC: ED 17:10 → INTOOBSV 20:06 → 2B-ACE 20:06
PROVIDERS: ADMIT Internal Medicine; ATTEND Internal Medicine
DX: K92.2 Gastrointestinal hemorrhage, unspecified (principal); I10 Essential (primary) hypertension; D64.9 Anemia, unspecified; R56.9 Unspecified convulsions; K21.9 Gastro-esophageal reflux disease without esophagitis; M19.90 Unspecified osteoarthritis, unspecified site; Z90.710 Acquired absence of both cervix and uterus
CPT/HCPCS: 36415; 36430; 43239; 71045; 80048; 80053; 80061; 81001; 82271; 84484; 85025; 85610; 85730; 86850; 86900; 86901; 86920; 88305; 88342; 93005; 93010; 96365; 96366; 96374; 96375; 99285; C9113; G0378; J2405; J2704; J7030; J7040; P9016; 96361